=== PATIENT | male | born 1935 | race Caucasian/White ===

== ENCOUNTER 2019-11-08 02:01 | Outpatient (CLI) | payer MEDICARE, OTHER, SELFPAY ==
--- NOTE | 2019-11-08 | DI.MRI_ITS ---
EXAM: MR PELVIS WO CLINICAL HISTORY: PROSTATE CA, S/P FIDUCIAL MARKER AND HYDROGEL PLACEMENT, MRI FOR RADIATION TECHNIQUE: Multiplanar multisequence MRI of Pelvis was performed. CONTRAST MATERIAL: Noncontrast COMPARISON: No exams were available for comparison FINDINGS: The exam was performed for radiation treatment planning. No gross evidence of adenopathy or bony les ions are seen. The bladder is unremarkable. There is no pelvic fluid. DATA REPOSITORY:
== END 2019-11-08 02:21 ==
PROVIDERS: PCP Internal Medicine; Visit Provider Radiology Radiation Oncology
DX: C61 Malignant neoplasm of prostate (principal); Z51.0 Encounter for antineoplastic radiation therapy
CPT/HCPCS: 72195

== ENCOUNTER → 2023-11-01 11:26 | Outpatient (BNVA) | payer MEDICARE, OTHER, SELFPAY | PROVIDERS: PCP Internal Medicine; Referring Provider Internal Medicine; Visit Provider Podiatrist | DX: I70.203 Unspecified atherosclerosis of native arteries of extremities, bilateral legs (principal); I70.223 Atherosclerosis of native arteries of extremities with rest pain, bilateral legs; G62.9 Polyneuropathy, unspecified; E11.9 Type 2 diabetes mellitus without complications; L60.3 Nail dystrophy; Z79.01 Long term (current) use of anticoagulants; B35.1 Tinea unguium; E11.51 Type 2 diabetes mellitus with diabetic peripheral angiopathy without gangrene; E11.42 Type 2 diabetes mellitus with diabetic polyneuropathy | CPT/HCPCS: 11719 ==